=== PATIENT | male | born 1965 | race Caucasian/White ===

== ENCOUNTER 2020-08-20 08:37 | Outpatient (CLI) | payer MEDICARE, SELFPAY | END 2020-08-20 08:38 | disposition home or self-care (01) | LOC: LAB 08:41 | PROVIDERS: Family Provider Family Medicine; PCP Family Medicine; Visit Provider Family Medicine | DX: R19.7 Diarrhea, unspecified (principal) | CPT/HCPCS: 83630; 87046; 87177; 87209; 87493 ==

== ENCOUNTER 2022-05-02 10:36 | Emergency (ER) | payer MEDICARE, SELFPAY ==
[2022-05-02 10:43] VITALS: BP 117/73; PULSE 84; RESP 14; TEMP 36.2; O2SAT 95; BMI 20.9
[2022-05-02 10:52] VITALS: BP 137/82; PULSE 90; RESP 18; O2SAT 96
--- NOTE | 2022-05-02 10:53 | CTR_ITS ---
PROCEDURE INFORMATION: Exam: CT Head Without Contrast Exam date and time: 05/02/2022 11:44 AM Age: 56 years old Clinical indication: Altered mental status/memory loss; Additional info: AMS TECHNIQUE: Imaging protocol: Computed tomography of the head without contrast. Radiation optimization: All CT scans at this facility use at least one of these dose optimization techniques: automated exposure control; mA and/or kV adjustment per patient size (includes targeted exams where dose is matched to clinical indication); or iterative reconstruction. COMPARISON: No relevant prior studies available. RADIATION DOSE METRICS: Total DLP (mGy-cm): 1175.68 FINDINGS: Brain: Normal. No hemorrhage. Unremarkable white matter. No mass effect. Cerebral ventricles: No ventriculomegaly. Paranasal sinuses: Visualized sinuses are unremarkable. No fluid levels. Mastoid air cells: Visualized mastoid air cells are well aerated. Bones/joints: Unremarkable. No acute fracture. Soft tissues: Unremarkable. CT/CT head wo con* [id number] IMPRESSION: No acute intracranial abnormality.
--- NOTE | 2022-05-02 10:53 | XRR_ITS ---
PROCEDURE INFORMATION: Exam: XR Chest Exam date and time: 05/02/2022 11:06 AM Age: 56 years old Clinical indication: Cough and dyspnea; Additional info: Dyspnea/cough TECHNIQUE: Imaging protocol: Radiologic exam of the chest. Views: 1 view. COMPARISON: No relevant prior studies available. FINDINGS: Lungs: The lungs are somewhat hyperinflated with increased interstitial markings, likely representing COPD. No evidence of focal consolidation to suggest pneumonia. Pleural spaces: Unremarkable. No pleural effusion. No pneumothorax. Heart/Mediastinum: Stable cardiomediastinal silhouette. Bones/joints: Unremarkable. XR/XR chest 1V portable [id number] IMPRESSION: No evidence of focal consolidation. COPD changes.
--- NOTE | 2022-05-02 10:57 | PC.NURSE ---
BG 46, ERP notified, verbal orders to feed patient.
[2022-05-02 11:00] LABS: Glucose Point of Care 46 mg/dL (70-110)
--- NOTE | 2022-05-02 11:04 | ECG_ITS ---
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 Measurements Intervals [place] Rate: 86 P: 78 WI: 165 QRS: 61 QRSD: 96 T: 70 QT: 378 QTc: 455 Interpretive Statements SINUS RHYTHM WITH OCCASIONAL VENTRICULAR PREMATURE COMPLEXES INDETERMINATE AXIS MODERATE ST DEPRESSION [0.05+ mV ST DEPRESSION] No previous ECG available for comparison Electronically Signed On 05-02-2022 18:11:48 CDT by Ananda Newton M.D. [id number]
[2022-05-02] MEDS: lactated ringers 1,000 ML 999 ML IV (11:14)
--- NOTE | 2022-05-02 11:14 | W.ED.WEAKNES ---
HPI - Weakness General: Chief complaint: Weakness Stated complaint: weakness, drooping mouth, confusion Time Seen by Provider: 05/02/22 10:42 Source: patient Mode of arrival: ambulatory History of Present Illness: 56-year-old male presents emergency room week some confusion not feeling well when he woke this morning.. When I went to see the patient he was awake and alert and oriented. His blood sugar initially was 46. He is following commands moving all extremities no localized deficits. Patient admits to drinking regularly and heavily he drinks at least a pint a night every night and he drank that much last night. No headache no history of stroke or coronary artery disease. MD Complaint: generalized weakness Onset (ago): hour(s) Location: generalized Migration: none Severity: moderate Relieving factors: none Exacerbating factors: none Associated symptoms: Reports nausea; Denies chest pain, chills, confusion, melena, decreased appetite, diaphoresis, dysuria, easy bruising, fever(s), headache(s), myalgias, rash, short of breath, syncope or vomiting Review of Systems Const: Denies: fever(s), chills or diaphoresis ENMT: Denies: throat pain, ear or mastoid pain, nasal discharge or nasal congestion Card: Denies: chest pain or syncope Resp: Denies: dyspnea, productive cough or non-productive cough GI: Reports: nausea; Denies: vomiting or melena : Denies: dysuria Skin/Breast: Denies: rash or pruritus Neuro: Denies: headache(s) or confusion Jann/Lymph: Denies: easy bruising PFSH ED PFSH: Medical History GERD (gastroesophageal reflux disease) Surgical History History of femoral hernia repair Social History (Updated 05/02/22 @ 11:16 by Rene Saenz DO) Smoking and tobacco status: current every day smoker Alcohol intake: current Alcohol intake frequency: 3 or more drinks per day Alcohol type: hard liquor Alcohol use comment: Drinks 1 pint of hard liquor per day minimum Desire information about alcohol rehabilitation?: No Counseling given: No (patient declined, his response indicated he has no desire to stop) Physical Exam Const: GENERAL APPEARANCE: cooperative and comfortable ORIENTATION/CONSCIOUSNESS: Yes awake, Yes oriented to person, Yes oriented to place and Yes oriented to time HENMT: COMMON NORMALS: normocephalic, atraumatic, hearing grossly normal bilaterally, external ears normal, EAC's normal, TM's normal bilaterally, Normal nasal mucous membranes and turbinates present, moist oral mucous membranes and oropharynx normal HEAD & SCALP: normocephalic and atraumatic NOSE: Normal nasal mucous membranes and turbinates present EXTERNAL EAR: Yes external ears normal EXTERNAL AUDITORY CANAL: EAC's normal TYMPANIC MEMBRANE: TM's normal bilaterally Eye: COMMON NORMALS: Equal, round and reactive pupils present, EOMs intact bilaterally, conjunctivae normal and no scleral icterus CONJUNCTIVA: Yes conjunctivae normal PUPIL: Yes Equal, round and reactive pupils present Neck/C-Spine: COMMON NORMALS: full ROM, no lymphadenopathy, supple and no JVD Lymph: LYMPHATIC: no lymphadenopathy noted and no lymphedema noted Resp: COMMON NORMALS: normal respiratory effort, No retractions, No use of accessory muscles and clear to auscultation bilaterally AUSCULTATION: clear to auscultation bilaterally Cardio: COMMON NORMALS: no JVD, regular rate, regular rhythm and No murmurs present (Cardio) RATE: regular rate RHYTHM: regular rhythm GI: COMMON NORMALS: Soft to palpation and No hepatosplenomegaly present AUSCULTATION: Yes normoactive bowel sounds PALPATION: Yes Soft to palpation, No Tenderness to palpation present (GI), No Guarding due to palpation present (GI) and Yes No hepatosplenomegaly present Extremity: COMMON NORMALS: normal to inspection, capillary refill normal, no clubbing, cyanosis or edema, no calf tenderness and no pedal edema Neuro: SENSORIUM/ORIENTATION: Yes oriented to person, Yes oriented to place and Yes oriented to time OTHER: No focal neurologic deficits. Cranial nerves II to XII intact NIH score 0 Skin: COMMON NORMALS: no rashes or lesions noted GENERAL SKIN EXAM: no rashes or lesions noted Course Vital Signs: Vital signs: Vital Signs Temperature 97.2 F L 05/02/22 10:43 Pulse Rate 75 05/02/22 12:29 Respiratory Rate 16 05/02/22 12:29 Blood Pressure 120/76 05/02/22 12:29 Pulse Oximetry 95 05/02/22 12:29 Oxygen Delivery Me thod 05/02/22 11:18 MDM - Weakness Medical Decision Making Patient improved after eating and getting IV fluids. CT of the head is unremarkable remainder labs unremarkable. I suspect a lot of this is tied to his heavy drinking. Discussed with him and his encouraged alcohol abstinence. Discharged home on pantoprazole. Recommend he does follow-up with his primary care to reinforce alcohol abstinence. If he has any worsening or change symptoms return to the emergency room. Medical Records I reviewed the patient's medical records. Lab Data I reviewed the patient's lab results. : 05/02/22 11:03 05/02/22 11:03 Radiology Impressions Chest X-Ray 05/02/22 10:53 IMPRESSION: No evidence of focal consolidation. COPD changes. Head CT 05/02/22 10:53 IMPRESSION: No acute intracranial abnormality. Laboratory Results WBC 9.4 10^3/uL (4.0-10.0) 05/02/22 11:03 RBC 4.67 10^6/uL (4.1-5.3) 05/02/22 11:03 Hgb 15.4 g/dL (11.7-16.6) 05/02/22 11:03 Hct 45.7 % (42.0-52.0) 05/02/22 11:03 MCV 97.9 fl (80-94) H 05/02/22 11:03 MCH 33.0 pg (28.0-34.0) 05/02/22 11:03 MCHC 33.7 g/dL (30.0-36.0) 05/02/22 11:03 RDW 14.2 % (12.1-15.1) 05/02/22 11:03 Plt Count 172 10^3/cmm (130-400) 05/02/22 11:03 MPV 11.1 fL (7.4-10.4) H 05/02/22 11:03 Neut % (Auto) 54.5 % 05/02/22 11:03 Lymph % (Auto) 36.6 % 05/02/22 11:03 [place] % (Auto) 6.1 % 05/02/22 11:03 Eos % (Auto) 0.9 % 05/02/22 11:03 Baso % (Auto) 1.6 % 05/02/22 11:03 Neut # (Auto) 5.10 10^3/uL (1.8-7.7) 05/02/22 11:03 Lymph # (Auto) 3.4 10^3/uL (0.8-4.8) 05/02/22 11:03 [place] # (Auto) 0.6 10^3/uL (0.2-0.9) 05/02/22 11:03 Eos # (Auto) 0.1 10^3/uL (0.0-0.8) 05/02/22 11:03 Baso # (Auto) 0.2 10^3/uL (0.0-0.1) H 05/02/22 11:03 Nucleated RBC % (auto) 0 % 05/02/22 11:03 Nucleated RBCs # 0.0 /100WBC 05/02/22 11:03 Sodium 137 mmol/L (136-145) 05/02/22 11:03 Potassium 3.8 mmol/L (3.5-5.1) 05/02/22 11:03 Chloride 98 mmol/L (98-107) 05/02/22 11:03 Carbon Dioxide 18 mmol/L (22-29) L 05/02/22 11:03 Anion Gap 24.8 (5-19) H 05/02/22 11:03 BUN 9 mg/dL (6-20) 05/02/22 11:03 Creatinine 0.8 mg/dL (0.7-1.2) 05/02/22 11:03 GFR Calculation 99.6 mL/min (90-130) 05/02/22 11:03 Glucose 42 mg/dL (65-115) L 05/02/22 11:03 POC Glucose 143 mg/dL (70-110) H 05/02/22 11:54 Calculated Osmolality 280 mOsm/kg (285-295) L 05/02/22 11:03 Calcium 9.3 mg/dL (8.5-10.5) 05/02/22 11:03 Total Bilirubin 0.8 mg/dL (0.15-1.2) 05/02/22 11:03 AST 61 U/L (0-40) H 05/02/22 11:03 ALT 30 U/L (0-41) 05/02/22 11:03 Alkaline Phosphatase 90 U/L (40-130) 05/02/22 11:03 Total Protein 7.7 g/dL (6.6-8.7) 05/02/22 11:03 Albumin 4.3 g/dL (3.5-5.2) 05/02/22 11:03 Globulin 3.4 g/dL (1.3-4.6) 05/02/22 11:03 Lipase 39 U/L (13-60) 05/02/22 11:03 Urine Color Yellow (Yellow) 05/02/22 12:19 Urine Appearance Clear (CLEAR) 05/02/22 12:19 Urine pH 5 (5-7) 05/02/22 12:19 Ur Specific [place] 1.025 (1.005-1.030) 05/02/22 12:19 Urine Protein Neg (Negative) 05/02/22 12:19 Urine Glucose (UA) Norm (Normal) 05/02/22 12:19 Urine Ketones 1+ (Negative) H 05/02/22 12:19 Urine Blood Neg (Negative) 05/02/22 12:19 Urine Nitrate Negative (Negative) 05/02/22 12:19 Urine Bilirubin Neg (Negative) 05/02/22 12:19 Urine Urobilinogen Neg mg/dL (Negative) 05/02/22 12:19 Ur Leukocyte Esterase Negative (Negative) 05/02/22 12:19 Discharge Plan Discharge Patient Disposition: Home Clinical Impression: Alcoholism, GERD (gastroesophageal reflux disease), Dehydration Prescriptions: New Protonix 40 mg tablet,delayed release (DR/EC) 40 mg PO DAILY 56 Days Qty: 30 0RF No Action sildenafil 100 mg tablet See Rx Instructions .ROUTE .COMPLEX Qty: 20 4RF Dose Instruction: TAKE 1 TABLET BY MOUTH EVERY DAY NEEDED FOR SEXUAL ACTIVITY. TAKE 30 MINUTES TO 4 HOURS BEFORE ACTIVITY. Rx Instructions: TAKE 1 TABLET BY MOUTH EVERY DAY NEEDED FOR SEXUAL ACTIVITY. TAKE 30 MINUTES TO 4 HOURS BEFORE ACTIVITY. Discharge Orders: Discharge ED (Routine); Ordered 05/02/22 Ordered By: Rene Saenz Referrals: Rafal Canas MD [Primary Care Provider] - Discharge Diet: Usual diet Discharge Activity: Increase activity as tolerated Patient Instructions: Alcohol Dependence (ED), Opioid Safety, Pain Management Activity Restrictions/Additional Instructions: Strongly encourage abstinence from alcohol. Follow-up with Dr. Canas in the next 2 weeks. Start pantoprazole 40 mg daily. Coding Level of Care Code ED Extension Service Agent for Chg Fwd Exam Comprehensive
[2022-05-02 11:16] LABS: Basophils # 0.2 10^3/uL (0.0-0.1); Basophils % 1.6 %; Eosinophils # 0.1 10^3/uL (0.0-0.8); Eosinophils % 0.9 %; Hematocrit 45.7 % (42.0-52.0); Hemoglobin 15.4 g/dL (11.7-16.6); Lymphocytes # 3.4 10^3/uL (0.8-4.8); Lymphocytes % 36.6 %; Mean Corpuscular HGB Conc 33.7 g/dL (30.0-36.0); Mean Corpuscular Volume 97.9 fl (80-94); Mean Platelet Volume 11.1 fL (7.4-10.4); Monocytes # 0.6 10^3/uL (0.2-0.9); Monocytes % 6.1 %; Neutrophils % 54.5 %; Nucleated Red Blood Cells % 0 %; Platelet Count 172 10^3/cmm (130-400); Red Blood Count 4.67 10^6/uL (4.1-5.3); Red Cell Distribution Width 14.2 % (12.1-15.1); White Blood Count 9.4 10^3/uL (4.0-10.0)
--- NOTE | 2022-05-02 11:16 | PC.NURSE ---
Patient given PO apple juice, peanut butter crackers, and sandwich.
[2022-05-02 11:18] VITALS: BP 122/79; PULSE 96; RESP 18; O2SAT 94
[2022-05-02 11:26] LABS: Glucose Point of Care 68 mg/dL (70-110)
[2022-05-02 11:44] LABS: Albumin Level 4.3 g/dL (3.5-5.2); Alkaline Phosphatase 90 U/L (40-130); Blood Urea Nitrogen 9 mg/dL (6-20); Calcium 9.3 mg/dL (8.5-10.5); Carbon Dioxide 18 mmol/L (22-29); Chloride 98 mmol/L (98-107); Globulin 3.4 g/dL (1.3-4.6); Glomerular Filtration Rate 99.6 mL/min (90-130); Glucose 42 mg/dL (65-115); Osmolality Calculated 280 mOsm/kg (285-295); Sodium 137 mmol/L (136-145); Total Bilirubin 0.8 mg/dL (0.15-1.2); Total Protein 7.7 g/dL (6.6-8.7)
[2022-05-02 11:47] LABS: Anion Gap 24.8 (5-19); Potassium 3.8 mmol/L (3.5-5.1)
[2022-05-02 11:48] LABS: Alanine Aminotransferase 30 U/L (0-41); Aspartate Amino Transferase 61 U/L (0-40)
[2022-05-02 11:54] LABS: Lipase 39 U/L (13-60)
[2022-05-02 11:58] LABS: Glucose Point of Care 143 mg/dL (70-110)
[2022-05-02 12:23] LABS: Add Urine Microscopic? NO; Charge for UA Resulting for Rev
[2022-05-02 12:29] VITALS: BP 120/76; PULSE 75; RESP 16; O2SAT 95
[2022-05-02 12:31] LABS: Bilirubin Urine Neg (Negative); Blood Urine Neg (Negative); Glucose Urine UA Norm (Normal); Ketones Urine 1+ (Negative); Leukocyte Esterase Urine Negative (Negative); Nitrate Urine Negative (Negative); Protein Urine Neg (Negative); Specific Gravity, Urine 1.025 (1.005-1.030); Urine Appearance Clear (CLEAR); Urine Color Yellow (Yellow); Urobilinogen Urine Neg (Negative); pH Urine 5 (5-7)
== END 2022-05-02 12:31 | disposition home or self-care (01) ==
PROVIDERS: Emergency Provider Family Medicine; PCP Family Medicine
DX: F10.20 Alcohol dependence, uncomplicated (principal); K21.9 Gastro-esophageal reflux disease without esophagitis; E86.0 Dehydration; F17.200 Nicotine dependence, unspecified, uncomplicated
CPT/HCPCS: 36416; 70450; 71045; 80053; 81003; 82962; 83690; 85025; 93005; 96360; 99285

== ENCOUNTER 2022-10-18 12:07 | Inpatient (IN) | payer MEDICARE, SELFPAY ==
[2022-10-18] VITALS (9 sets, daily range): BP systolic 120–143; BP diastolic 71–84; PULSE 53–89; RESP 16–18; TEMP 36.4–36.9; O2SAT 90–97
[2022-10-18 12:27] LABS: Glucose Point of Care 167 mg/dL (70-110)
--- NOTE | 2022-10-18 12:31 | XRR_ITS ---
PROCEDURE INFORMATION: Exam: XR Chest Exam date and time: 10/18/2022 12:53 PM Age: 57 years old Clinical indication: Shortness of breath; Additional info: Jerking left hand TECHNIQUE: Imaging protocol: Radiologic exam of the chest. Views: 1 view. COMPARISON: CR XR chest 1V portable [id number] 05/02/2022 11:06 AM FINDINGS: Lungs: There is an ill-defined right apical opacity projecting over the medial head of the right clavicle more apparent on the current study inconclusive for apical pulmonary mass. Remaining lung odonnell aerated and clear. Pleural spaces: Unremarkable. No pleural effusion. No pneumothorax. Heart/Mediastinum: Unremarkable. No cardiomegaly. Bones/joints: Unremarkable for age. XR/XR chest 1V portable [id number] IMPRESSION: Ill-defined right apical opacity, nonspecific for which follow-up nonemergent CT chest recommended for further assessment.
--- NOTE | 2022-10-18 12:33 | CTR_ITS ---
PROCEDURE INFORMATION: Exam: CT Head Without Contrast Exam date and time: 10/18/2022 11:42 AM Age: 57 years old Clinical indication: Other: Jerking of left hand TECHNIQUE: Imaging protocol: Computed tomography of the head without contrast. Radiation optimization: All CT scans at this facility use at least one of these dose optimization techniques: automated exposure control; mA and/or kV adjustment per patient size (includes targeted exams where dose is matched to clinical indication); or iterative reconstruction. REPORTING DATA: Count of CT and Cardiac NM exams in prior 12 months: This patient has received [address] and 0 known cardiac nuclear medicine studies in the 12 months prior to the current study. COMPARISON: CT head wo con* [id number] 05/02/2022 11:44 AM RADIATION DOSE METRICS: Total DLP (mGy-cm): 1089.1 FINDINGS: Brain: There is a moderate-sized circumscribed wedge-shaped hypodensity involving the right temporal-parietal lobe and 2 smaller hypodensities within the right posterior frontal lobe that have developed with accompanying sulcal effacement consistent with acute infarcts involving right MCA territory. There is no evidence of underlying hemorrhage. There is no midline shift. There is a stable small hypodensity adjacent to the right frontal horn lateral ventricle and more ill-defined areas of decreased attenuation within the periventricular white matter secondary to chronic white matter microvascular changes. Cerebral ventricles: Unremarkable for age. Paranasal sinuses: Visualized sinuses are unremarkable. No fluid levels. Mastoid air cells: Visualized mastoid air cells are well aerated. Bones/joints: Unremarkable. No acute fracture. Soft tissues: Unremarkable. 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 No evidence of underlying hemorrhagic transformation. ASSESSMENT: ASPECTS ([place] Stroke Program Early CT Score) is 4.
[2022-10-18 13:41] LABS: Basophils % 0.6 %; Eosinophils % 0.4 %; Hematocrit 50.5 % (42.0-52.0); Hemoglobin 17.4 g/dL (11.7-16.6); Lymphocytes # 1.7 10^3/uL (0.8-4.8); Lymphocytes % 23.9 %; Mean Corpuscular HGB Conc 34.5 g/dL (30.0-36.0); Mean Corpuscular Hemoglobin 32.5 pg (28.0-34.0); Mean Corpuscular Volume 94.2 fl (80-94); Mean Platelet Volume 10.3 fL (7.4-10.4); Monocytes # 0.8 10^3/uL (0.2-0.9); Neutrophils # 4.41 10^3/uL (1.8-7.7); Nucleated Red Blood Cells % 0 %; Platelet Count 190 10^3/cmm (130-400); Red Blood Count 5.36 10^6/uL (4.1-5.3); White Blood Count 6.9 10^3/uL (4.0-10.0)
[2022-10-18 13:51] LABS: Alanine Aminotransferase 18 U/L (0-41); Alkaline Phosphatase 90 U/L (40-130); Anion Gap 14.6 (5-19); Aspartate Amino Transferase 26 U/L (0-40); Blood Urea Nitrogen 8 mg/dL (6-20); Calcium 9.4 mg/dL (8.5-10.5); Carbon Dioxide 27 mmol/L (22-29); Chloride 97 mmol/L (98-107); Globulin 3.1 g/dL (1.3-4.6); Glomerular Filtration Rate 99.3 mL/min (90-130); Glucose 134 mg/dL (65-115); Osmolality Calculated 280 mOsm/kg (285-295); Potassium 3.6 mmol/L (3.5-5.1); Sodium 135 mmol/L (136-145); Total Protein 7.1 g/dL (6.6-8.7)
[2022-10-18 13:58] LABS: Amphetamines Screen Urine Negative (Negative); Barbiturates Screen Urine Negative (Negative); Benzodiazepines Screen Urine Negative (Negative); Cocaine Screen Urine Negative (Negative); Opiate Screen Urine Negative (Negative); PCP Screen Urine Negative (Negative); THC Screen Urine Positive (Negative)
[2022-10-18 14:00] LABS: Add Urine Microscopic? YES; Bilirubin Urine 2+ (Negative); Blood Urine Neg (Negative); Glucose Urine UA Norm (Normal); Ketones Urine 3+ (Negative); Leukocyte Esterase Urine Negative (Negative); Nitrate Urine Negative (Negative); Protein Urine Trace (Negative); Specific Gravity, Urine 1.025 (1.005-1.030); Urine Appearance Clear (CLEAR); Urine Color Dark Yellow (Yellow); Urobilinogen Urine 4 mg/dL (Negative); WBC Urine RARE /hpf (0-5); pH Urine 5 (5-7)
[2022-10-18 14:01] LABS: Add Urine Culture? No; Bacteria Urine TRACE /hpf; Calcium Oxalate Crystals Urine 15-25 /hpf; Mucus Urine 2+ /hpf
--- NOTE | 2022-10-18 14:04 | ED_ITS ---
HPI - Neuro Symptoms/Deficit General: Chief Complaint: Neuro Symptoms/Deficit Stated Complaint: left side numb/speech slurred Time Seen by Provider: 10/18/22 12:24 History of Present Illness: This 57-year-old male with a history of GERD presents to the ER with intermittent involuntary jerking of the left upper extremity. notes that symptoms started on (3 days ago) but patient has refused to come to the hospital for evaluation. Patient has a history of alcohol abuse but notes that in recent times he has cut down drastically and has not had any drink over the last couple of days. adds that at the onset of his symptoms, patient was not making sense when he talked but with time this gradually improved to the point that patient is back to his baseline now. Patient stumbles when he walks and sustained a couple of bruises on the upper extremities as a result. No head injury or loss of consciousness was reported. There is no fever, vomiting, diarrhea or any other systemic symptoms. Associated symptoms: Deny chest pain or headache(s) Review of Systems Const: Denies: chills, body aches or change in appetite Eyes: Denies: change in vision or eye discharge ENMT: Denies: throat pain, dental pain or nasal discharge Card: Denies: chest pain or lightheadedness : Denies: dysuria Musc: Reports: other (Involuntary jerking movement of the left upper extremity.); Denies: neck pain or back pain Neuro: Denies: headache(s) or weakness in extremities Psych: Denies: depression Jann/Lymph: Denies: easy bruising All/Imm: Denies: urticaria, tongue swelling or facial swelling PFSH ED PFSH: Medical History GERD (gastroesophageal reflux disease) History of alcoholism Smoker Surgical History History of femoral hernia repair Family History (Updated 10/18/22 @ 15:09 by Joe Collins MD) Mother CAD (coronary artery disease) Father CAD (coronary artery disease) Social History Smoking and tobacco status: current every day smoker Alcohol intake: current Alcohol intake frequency: 3 or more drinks per day Alcohol type: hard liquor Desire information about alcohol rehabilitation?: No Counseling given: No (patient declined, his response indicated he has no desire to stop) Physical Exam Const: COMMON NORMALS: no acute distress, patient oriented x3, no limitations and alert HENMT: COMMON NORMALS: normocephalic HEAD & SCALP: normocephalic Eye: COMMON NORMALS: EOMs intact bilaterally Neck/C-Spine: COMMON NORMALS: full ROM and supple Chest: COMMONS NORMALS: normal inspection of the chest Resp: COMMON NORMALS: normal respiratory effort, No retractions, No use of accessory muscles and clear to auscultation bilaterally AUSCULTATION: clear to auscultation bilaterally Cardio: COMMON NORMALS: regular rate, regular rhythm and No murmurs present (Cardio) RATE: regular rate RHYTHM: regular rhythm GI: COMMON NORMALS: Normal to inspection, nondistended, normoactive bowel soun ds present and non-tender : COMMON NORMALS: Yes no CVA tenderness BLADDER/KIDNEY EXAM: Yes no CVA tenderness Back/Pelvis: COMMON NORMALS: no CVA tenderness and no thoracic nor lumbar tenderness Extremity: GENERAL: Yes normal exam except as noted Neuro: COMMON NORMALS: patient oriented x3 SENSORIUM/ORIENTATION: Yes alert SPEECH: speech normal OTHER: Patient has normal speech with no clear facial droop. Strength is 4+ out of 5 in the left upper extremity with normal strength in the rest of the extremities. Sensations are intact. Psych: COMMON NORMALS: mental status grossly normal and cooperative Course Consultations: Consultation #1: CT findings of right MCA distribution stroke were discussed with Dr. Sarmiento. She recommends getting an MRI/a of the head and neck tomorrow. Patient can be admitted under the hospitalist. He will see patient tomorrow. Time: 14:01 Vital Signs: Vital signs: Vital Signs Temperature 98.4 F 10/18/22 20:00 Pulse Rate 60 10/18/22 22:19 Respiratory Rate 17 10/18/22 20:00 Blood Pressure 120/78 10/18/22 20:00 Pulse Oximetry 90 10/18/22 20:00 Oxygen Delivery Me thod 10/18/22 20:00 MDM - Neuro Symptoms/Deficit Medical Decision Making Medical decision making: History as above. CT brain confirms that patient has an acute infarct in the right MCA distribution. Case discussed with Dr. Sarmiento and Dr. Stone who accepted patient for admission. Lab Data 10/18/22 12:51 03/12/23 12:51 Radiology Impressions Chest X-Ray 10/18/22 12:31 IMPRESSION: Ill-defined right apical opacity, nonspecific for which follow-up nonemergent CT chest recommended for further assessment. Head CT 10/18/22 12:33 IMPRESSION: Findings consistent with acute infarcts corresponding to right MCA territory involving right posterior frontal lobe and right temporal-parietal lobes. No evidence of underlying hemorrhagic transformation. ASSESSMENT: ASPECTS (Elizabeth Stroke Program Early CT Score) is 4. ADDENDUM: 10/18/22 1346 THIS REPORT CONTAINS FINDINGS THAT MAY BE CRITICAL TO PATIENT CARE. The findings were verbally communicated via telephone conference with BASHIR PANCHAL at 1:44 PM CDT on 10/18/2022. The findings were acknowledged and understood. Carotid Doppler Study 10/18/22 14:56 IMPRESSION: No carotid arterial stenosis. REFERENCES: SRU CRITERIA. The degree of internal carotid artery stenosis is based on criteria defined by the Society of Radiologists in Ultrasound (SRU). Normal is no stenosis. Mild is less than 50% stenosis. Moderate is 50-69% stenosis. Severe is greater than 69% stenosis to near occlusion. Near occlusion is a markedly narrowed lumen. Total occlusion is no detectable patent lumen. Chest CT 10/18/22 15:01 IMPRESSION: COPD with scattered chronic granulomatous calcifications. Negative for lung mass. Laboratory Results WBC 6.9 10^3/uL (4.0-10.0) 10/18/22 12:51 RBC 5.36 10^6/uL (4.1-5.3) H 10/18/22 12:51 Hgb 17.4 g/dL (11.7-16.6) H 10/18/22 12:51 Hct 50.5 % (42.0-52.0) 10/18/22 12:51 MCV 94.2 fl (80-94) H 10/18/22 12:51 MCH 32.5 pg (28.0-34.0) 10/18/22 12:51 MCHC 34.5 g/dL (30.0-36.0) 10/18/22 12:51 RDW 13.0 % (12.1-15.1) 10/18/22 12:51 Plt Count 190 10^3/cmm (130-400) 10/18/22 12:51 MPV 10.3 fL (7.4-10.4) 10/18/22 12:51 Neut % (Auto) 64.0 % 10/18/22 12:51 Lymph % (Auto) 23.9 % 10/18/22 12:51 [place] % (Auto) 11.0 % 10/18/22 12:51 Eos % (Auto) 0.4 % 10/18/22 12:51 Baso % (Auto) 0.6 % 10/18/22 12:51 Neut # (Auto) 4.41 10^3/uL (1.8-7.7) 10/18/22 12:51 Lymph # (Auto) 1.7 10^3/uL (0.8-4.8) 10/18/22 12:51 [place] # (Auto) 0.8 10^3/uL (0.2-0.9) 10/18/22 12:51 Eos # (Auto) 0.0 10^3/uL (0.0-0.8) 10/18/22 12:51 Baso # (Auto) 0.0 10^3/uL (0.0-0.1) 10/18/22 12:51 Nucleated RBC % (auto) 0 % 10/18/22 12:51 Nucleated RBCs # 0.0 /100WBC 10/18/22 12:51 ESR 7 mm/hr (0-10) 10/18/22 12:51 PT 12.70 SECONDS (12.1-14.9) 10/18/22 12:51 INR 0.93 (0.8-1.2) 10/18/22 12:51 Sodium 135 mmol/L (136-145) L 10/18/22 12:51 Potassium 3.6 mmol/L (3.5-5.1) 10/18/22 12:51 Chloride 97 mmol/L (98-107) L 10/18/22 12:51 Carbon Dioxide 27 mmol/L (22-29) 10/18/22 12:51 Anion Gap 14.6 (5-19) 10/18/22 12:51 BUN 8 mg/dL (6-20) 10/18/22 12:51 Creatinine 0.8 mg/dL (0.7-1.2) 10/18/22 12:51 GFR Calculation 99.3 mL/min (90-130) 10/18/22 12:51 Glucose 134 mg/dL (65-115) H 10/18/22 12:51 POC Glucose 167 mg/dL (70-110) H 10/18/22 12:25 Estimat Average Glucose 88 10/18/22 12:51 Hemoglobin A1c 4.7 % (4.0-6.0) 10/18/22 12:51 Calculated Osmolality 280 mOsm/kg (285-295) L 10/18/22 12:51 Calcium 9.4 mg/dL (8.5-10.5) 10/18/22 12:51 Total Bilirubin 1.0 mg/dL (0.15-1.2) 10/18/22 12:51 AST 26 U/L (0-40) 10/18/22 12:51 ALT 18 U/L (0-41) 10/18/22 12:51 Alkaline Phosphatase 90 U/L (40-130) 10/18/22 12:51 Troponin T Baseline 10 ng/L (0-15) 10/18/22 12:51 C-Reactive Protein 3.0 mg/L (0.0-4.9) 10/18/22 12:51 NT-Pro-B Natriuret Pep 182 pg/mL (0-125) H 10/18/22 12:51 Total Protein 7.1 g/dL (6.6-8.7) 10/18/22 12:51 Albumin 4.0 g/dL (3.5-5.2) 10/18/22 12:51 Globulin 3.1 g/dL (1.3-4.6) 10/18/22 12:51 Triglycerides 119 mg/dL (0-150) 10/18/22 12:51 Cholesterol 194 mg/dL (0-200) 10/18/22 12:51 LDL Cholesterol, Calc 100 mg/dL (50-129) 10/18/22 12:51 HDL Cholesterol 70 mg/dL (60-100) 10/18/22 12:51 LDL/HDL Ratio 1.43 RATIO (0.00-3.22) 10/18/22 12: Cholesterol/HDL Ratio 2.77 mg/dL (1.0-5.00) 10/18/22 12:51 Lipase 46 U/L (13-60) 10/18/22 12:51 Folate 14.9 ng/mL (4.5-32.2) 10/18/22 12:51 Procalcitonin 0.07 ng/mL (0-0.5) 10/18/22 12:51 TSH 0.80 uIU/mL (0.27-4.20) 10/18/22 12:51 Urine Color Dark yellow (Yellow) 10/18/22 13:20 Urine Appearance Clear (CLEAR) 10/18/22 13:20 Urine pH 5 (5-7) 10/18/22 13:20 Ur Specific [place] 1.025 (1.005-1.030) 10/18/22 13:20 Urine Protein Trace (Negative) 10/18/22 13:20 Urine Glucose (UA) Norm (Normal) 10/18/22 13:20 Urine Ketones 3+ (Negative) H 10/18/22 13:20 Urine Blood Neg (Negative) 10/18/22 13:20 Urine Nitrate Negative (Negative) 10/18/22 13:20 Urine Bilirubin 2+ (Negative) H 10/18/22 13:20 Urine Urobilinogen 4 mg/dL (Negative) H 10/18/22 13:20 Ur Leukocyte Esterase Negative (Negative) 10/18/22 13:20 Urine RBC None /hpf (0-2) 10/18/22 13:20 Urine WBC Rare /hpf (0-5) 10/18/22 13:20 Ur Squamous Epith Cells None /hpf (0-5) 10/18/22 13:20 Calcium Oxalate Crystal 15-25 /hpf H 10/18/22 13:20 Amorphous Sediment Not Reportable 10/18/22 13:20 Urine Bacteria Trace /hpf (NONE) 10/18/22 13:20 Urine Mucus 2+ /hpf 10/18/22 13:20 Urine Opiates Screen Negative ng/mL (Negative) 10/18/22 13:20 Ur Barbiturates Screen Negative ng/mL (Negative) 10/18/22 13:20 Ur Phencyclidine Scrn Negative ng/mL (Negative) 10/18/22 13:20 Ur Amphetamines Screen Negative ng/mL (Negative) 10/18/22 13:20 U Benzodiazepines Scrn Negative ng/mL (Negative) 10/18/22 13:20 Urine Cocaine Screen Negative ng/mL (Negative) 10/18/22 13:20 U Marijuana (THC) Screen Positive ng/mL (Negative) H 10/18/22 13:20 Discharge Plan Discharge Patient Disposition: Admitted As Inpatient Admit Provider: Joe Collins Clinical Impression: CVA (cerebrovascular accident) Condition: Stable Coding Level of Care Code ED Credit Card Interviewer for Richard Davis
--- NOTE | 2022-10-18 14:56 | USR_ITS ---
PROCEDURE INFORMATION: Exam: US Duplex Bilateral Extracranial Arteries, Carotid Arteries Exam date and time: 10/18/2022 6:30 PM Age: 57 years old Clinical indication: Speech disturbance; Slurred speech; Additional info: CVA TECHNIQUE: Imaging protocol: Real-time Duplex ultrasound scan of the bilateral carotid and vertebral arteries combining farah scale, color Doppler and spectral waveform analysis. Bilateral exam. Exam focused on the carotid arteries. COMPARISON: CT head wo con* [id number] 10/18/2022 11:42 AM FINDINGS: Right common carotid artery: Unremarkable. No occlusion or stenosis. Waveforms are normal. Right internal carotid artery: Unremarkable. No occlusion or stenosis. Waveforms are normal. Right ICA/CCA ratio: Within normal limits. Right external carotid artery: No stenosis in the origin. Right vertebral artery: Unremarkable. Antegrade flow. Left common carotid artery: Unremarkable. No occlusion or stenosis. Waveforms are normal. Left internal carotid artery: Unremarkable. No occlusion or stenosis. Waveforms are normal. Left ICA/CCA ratio: Within normal limits. Left external carotid artery: No stenosis in the origin. Left vertebral artery: Unremarkable. Antegrade flow. US/CV carotid duplex BI* [id number] IMPRESSION: No carotid arterial stenosis. REFERENCES: SRU CRITERIA. The degree of internal carotid artery stenosis is based on criteria defined by the Society of Radiologists in Ultrasound (SRU). Normal is no stenosis. Mild is less than 50% stenosis. Moderate is 50-69% stenosis. Severe is greater than 69% stenosis to near occlusion. Near occlusion is a markedly narrowed lumen. Total occlusion is no detectable patent lumen.
--- NOTE | 2022-10-18 14:56 | ECG_ITS ---
[facility] Test Date: 2022-10-18 Pat Name: Jarrell Lynne Department: Room: 251 Gender: Male Director Of Income Tax: : 1965 Requested By: Joe Collins Order Number: [id number] Dayami MD: Ananda Newton M.D. Measurements Intervals [place] Rate: 68 P: 24 RI: 161 QRS: 80 QRSD: 97 T: 269 QT: 409 QTc: 437 Interpretive Statements SINUS RHYTHM WITH OCCASIONAL VENTRICULAR PREMATURE COMPLEXES POSSIBLE LEFT ATRIAL ENLARGEMENT [-0.1mV P-WAVE IN V1/V2] INCOMPLETE RIGHT BUNDLE BRANCH BLOCK [90+ ms QRS DURATION, TERMINAL R IN V1/V2, 40+ ms S IN I/aVL/V4/V5/V6] SEPTAL MYOCARDIAL INFARCTION , OF INDETERMINATE AGE [40+ ms Q WAVE IN V1/V2] LATERAL MYOCARDIAL INFARCTION , OF INDETERMINATE AGE [40+ ms Q WAVE AND/OR ST/T ABNORMALITY IN I/aVL/V5/V6] MODERATE T-WAVE ABNORMALITY, CONSIDER INFERIOR ISCHEMIA [-0.1+ mV T-WAVE IN II/aVF].WARNING: DATA QUALITY MAY AFFECT INTERPRETATION Compared to ECG 05/02/2022 11:04:05.Incomplete right bundle-branch block now present.Myocardial infarct finding now present T-wave abnormality now present.Possible ischemia now present Indeterminate axis no longer present.ST (T wave) deviation no longer present Electronically Signed On 10-18-2022 19:41:44 CDT by Ananda Newton M.D. [id number]
--- NOTE | 2022-10-18 14:56 | USCV_ITS ---
Jarrell Lynne Age: 57 Gender: M : 1965 Exam Date: 10/18/2022 17:22 Ordering Phys: Joe Collins MD Technologist: ALLEGRA [place] [facility] [place] Indication: cva BP: / HR: 53 Rhythm: Sinus Technical Quality: Adequate MEASUREMENTS (Male / Female) Normal Values 2D ECHO LV Diastolic Diameter PLAX 4.3 cm 4.2 - 5.9 / 3.9 - 5.3 cm LV Systolic Diameter PLAX 3.8 cm IVS Diastolic Thickness 0.6 cm 0.6 - 1.0 / 0.6 - 0.9 cm IVS Systolic Thickness 1.1 cm LVPW Diastolic Thickness 1.1 cm 0.6 - 1.0 / 0.6 - 0.9 cm LVPW Systolic Thickness 1.1 cm LVOT Diameter 2.4 cm LV Ejection Fraction 2D Teich 22.9 % LV Ejection Fraction MOD 2C 53.7 % LV Ejection Fraction 2C AL 53.8 % LA Diameter 2.8 cm IVC Diameter 2.2 cm M-MODE Aortic Annulus Diameter 3.6 cm LA Ao Ratio MM 0.9 MV E Point Septal Separation 1.4 cm DOPPLER AV Peak Velocity 113.0 cm/s LVOT Peak Velocity 65.0 cm/s AV Area Cont Eq vti 3.0 cm squared AV Area Cont Eq pk 2.6 cm squared MV Area PHT 9.6 cm squared Mitral E to A Ratio 1.3 MV E' Velocity 33.0 cm/s Mitral E to MV E' Ratio 6.4 Mitral E to LV E' Lateral Ratio 6.5 Mitral E to LV E' Septal Ratio 6.3 TV Peak E Velocity 50.0 cm/s FINDINGS Left Ventricle Diffuse hypokinesia left ventricular ejection fraction of around 50-55%. Patient was found to have frequent ventricular arrhythmias in the study. Segmental wall motion analysis could be difficult because of the arrhythmia Right Ventricle Possibly normal RV size and ejection fraction Right Atrium Possibly of normal size Left Atrium The left atrium is normal in size. Mitral Valve Trace mitral valve regurgitation. Aortic Valve No gross abnormalities noted Tricuspid Valve No gross abnormalities noted Pulmonic Valve Pulmonic valve not well visualized. Pericardium Normal pericardium without effusion. Aorta Normal ascending aorta dimension. IVC Normal inferior vena cava. CONCLUSIONS Mild diffuse hypokinesia left ventricular ejection fraction of around 50-55%. Patient was found to have frequent ventricular arrhythmias in the study. Segmental wall motion analysis could be difficult because of the arrhythmia. Trace mitral valve regurgitation. There is no pericardial effusion. There are no intracardiac masses. Technically somewhat difficult study Dr Ananda Newton MD [facility] (Electronically Signed) Final Date: 18 October 2022 18:29 S
--- NOTE | 2022-10-18 15:00 | P.HP_ITS ---
Providers/Chief Complaint Primary Care Provider: Rafal Canas MD Chief Complaint: left side numb/speech slurred History of Present Illness Jarrell Lynne is a 57 year old male with a past medical history of COPD, active smoking, marijuana use, legally blind from macular degeneration, history of alcoholism. Who presents to [facility] due to left-sided weakness, trouble walking, trouble coordinating on the left side, some slurring of his words, since . Patient's symptoms started on , he started to develop left-sided weakness of his left arm and left leg, trouble walking, trouble coordinating, some slurring of his words, productive aphasia, not making sense, possibly some receptive aphasia he is legally blind. He thought his symptoms were related to hypoglycemia, however with increased intake his blood sugars did not improve. Patient tells me that he has a history of alcoholism, has been cutting down his alcohol consumption, 2-3 beers a day his last alcohol drink was last night, he had a shot also with alcohol. Because of his alcohol consumption his appetite has dramatically declined, he does not eat well, his weight is on the lower end but has always been a small jose he tells me. But a few months ago he had an episode like this, in which she felt weak on the left side, and when he ate something, he felt his blood sugars were low so after he ate something, he symptomatology on the left side improved. So this time and to happen again he thought by eating something his blood sugars are improving his symptoms would resolve however they persisted, and he refused to come to the hospital. He continues to have trouble coordinating on the left side but he tells me that some of the strength on the left side is improved, still has trouble coordinating and walking, but his ambulation has improved. His slurring of his words persist to some degree, but significantly improved, no trouble swallowing no choking, no coughing. No receptive aphasia, can follow commands. On my evaluation, his NIH stroke scale is 9, patient is out of tPA window, he is out of endovascular window, CT shows acute infarct involving MCA territory, on the right his strength on his left side is improving as per patient and family. Hospital team was called for admission. Currently on monitor no evidence of A- fib Review of Systems Const: Denies: fever(s), chills or fatigue ENMT: Denies: nasal congestion Card: Denies: chest pain or palpitations Resp: Denies: dyspnea, productive cough, non-productive cough or wheezing GI: Denies: abdominal pain, nausea, vomiting, constipation, hematochezia or melena : Denies: flank pain, difficulty urinating, dysuria or urinary frequency Musc: Denies: neck pain or back pain Skin/Breast: Denies: rash Neuro: Denies: headache(s), dizziness or vertigo Endo: Denies: polyuria or polydipsia Medications/Allergies Home Medications Medication Instructions Recorded Confirmed Last Taken Type pantoprazole 40 mg tablet,delayed 40 mg PO DAILY 30 days #30 tabs 07/07/22 10/18/22 2 Weeks Ago Rx release (Protonix) ~10/04/22 sildenafil 100 mg tablet See Rx Instructions .Route 07/20/22 10/18/22 10/16/22 Rx .COMPLEX #20 tabs phenylephrine-guaifenesin 5 mg-200 2 tab PO Q4H PRN Sinus Symptoms 10/18/22 10/18/22 Unknown History mg tablet Allergies Allergy/AdvReac Type Severity Reaction Status Date / Time No Known Allergies Allergy Verified 10/18/22 12:33 PFSH Acute PFSH: Medical History GERD (gastroesophageal reflux disease) History of alcoholism Smoker Surgical History History of femoral hernia repair Family History (Updated 10/18/22 @ 15:09 by Joe Collins MD) Mother CAD (coronary artery disease) Father CAD (coronary artery disease) Social History Smoking and tobacco status: current every day smoker Alcohol intake: current Alcohol intake frequency: 3 or more drinks per day Alcohol type: hard liquor Desire information about alcohol rehabilitation?: No Counseling given: No (patient declined, his response indicated he has no desire to stop) Vitals/I&O/Wt Last Vital Signs Pulse 57 L 10/18/22 14:00 Resp 16 10/18/22 13:16 BP 143/83 10/18/22 14:00 Pulse Ox 97 10/18/22 14:00 O2 Del Method 10/18/22 12:12 Weight last 48 hrs Weight 58.967 kg Physical Exam Const: COMMON NORMALS: no acute distress and patient oriented x3 HENMT: COMMON NORMALS: normocephalic HEAD & SCALP: normocephalic Eye: COMMON NORMALS: Equal, round and reactive pupils present Neck/C-Spine: COMMON NORMALS: no JVD Lymph: LYMPHATIC: no lymphadenopathy noted Chest: COMMONS NORMALS: normal inspection of the chest Resp: COMMON NORMALS: normal respiratory effort, No retractions, No use of accessory muscles and clear to auscultation bilaterally AUSCULTATION: clear to auscultation bilaterally Cardio: COMMON NORMALS: no JVD, regular rate, regular rhythm, S1 normal heart sound present and S2 normal heart sound present RATE: regular rate RHYTHM: regular rhythm HEART SOUNDS: S1 normal heart sound present and S2 normal hear t sound present GI: COMMON NORMALS: Normal to inspection, nondistended, normoactive bowel sounds present, Soft to palpation, non-tender, No hepatosplenomegaly present, no masses and no bruits PALPATION: Yes Soft to palpation and Yes No hepatosplenomegaly present Extremity: COMMON NORMALS: no calf tenderness and no pedal edema Neuro: COMMON NORMALS: patient oriented x3 OTHER: Slight left facial droop Slight slurring of the words No receptive aphasia Strength left upper extremity 3 out of 5, trouble coordinating Strength lower extremity, 4-5, trouble coordinating Psych: COMMON NORMALS: mental status grossly normal Data 10/18/22 12:51 10/18/22 12:51 A&P Assessment and plan (1) Acute right MCA stroke: (2) Smoker: (3) History of alcoholism: (4) Lung mass: (5) Protein calorie malnutrition: (6) Physical deconditioning: (7) Goals of care, counseling/discussion: Plan Acute right MCA stroke -NIH stroke scale 9, out of tPA window, no endovascular procedure window, its been 72 hours since his stroke episodes began, strength on the left side is improving Head CT -IMPRESSION: Findings consistent with acute infarcts corresponding to right MCA territory involving right posterior frontal lobe and right temporal-parietal lobes. No evidence of underlying hemorrhagic transformation. Plan -Admit to general medical floors -Neurochecks -Aspiration precautions -NIH stroke scale -PT OT, bedside swallow eval, speech therapy eval -IV fluids -Monitor blood pressures, can control blood pressures he is out of window for permissive hypertension -Cardiac echo -Telemetry monitoring -TSH, A1c, lipid panel -Aspirin, Plavix, statin -As per ER doctor, neurology wanted an MRI of the head and MRA of the head tomorrow, will order -Neurology has been consulted by ER physician -Thierno for DVT prophylaxis -Full code History of alcoholism -Last alcohol drink was yesterday, he had a couple beers and a shot of alcohol -No history of hemoptysis no history of esophageal varices, history of esophageal variceal bleed, nausea or bloody or black stools -We will do right right upper quadrant ultrasound -CIWA protocol - banana bag -Monitor for alcohol withdrawal Smoker, nicotine patch Chest x-ray picked up a right upper lung opacity to my examination, it seems like a lung mass, with his history of smoking, and his weight loss, will do a CT of the chest Weight loss, likely secondary alcoholism, CT of the chest for lung mass Protein calorie malnutrition from alcoholism, dietary consult Physical deconditioning, muscle wasting, has peripheral muscle wasting, temporal muscle wasting, likely from alcoholism Goals of care discussion patient wants to be a full code however he does not want to have life-sustaining measures if the likelihood of meaningful recovery is very unlikely, he would like his at bedside to make decisions for him if he cannot Attestations Medical Necessity Statement*: Patient requires hospitalization, inpatient, greater than 2 minutes, for acute right MCA stroke, alcoholism, lung mass Coding Level of Care Code Acute Code for Chg Fwd Diagnoses Acute right MCA stroke I63.511 Smoker F17.200 History of alcoholism F10.21 Lung mass R91.8 Protein calorie malnutrition E46 Physical deconditioning R53.81 Goals of care, counseling/discussion Z71.89
--- NOTE | 2022-10-18 15:01 | CTR_ITS ---
PROCEDURE INFORMATION: Exam: CT Chest Without Contrast; Diagnostic Exam date and time: 10/18/2022 2:06 PM Age: 57 years old Clinical indication: Shortness of breath; Additional info: Pulmonary mass TECHNIQUE: Imaging protocol: Diagnostic computed tomography of the chest without contrast. Radiation optimization: All CT scans at this facility use at least one of these dose optimization techniques: automated exposure control; mA and/or kV adjustment per patient size (includes targeted exams where dose is matched to clinical indication); or iterative reconstruction. REPORTING DATA: Count of CT and Cardiac NM exams in prior 12 months: This patient has received 2 known CTs and 0 known cardiac nuclear medicine studies in the 12 months prior to the current study. COMPARISON: CR (CHEST, ) 10/18/2022 12:53 PM RADIATION DOSE METRICS: Total DLP (mGy-cm): 245.95 FINDINGS: Lungs: Lung odonnell are hyperinflated and hyperlucent consistent with COPD. There are scattered multiple small calcifications both lung odonnell consistent with old granulomatous disease. There are no masses or infiltrates. There are some scattered granulomatous calcifications within the mediastinum. Pleural spaces: Unremarkable. No pneumothorax. No pleural effusion. Heart: Heart is not significantly enlarged. No significant coronary artery calcifications. No significant pericardial effusion. Lymph nodes: Unremarkable. No enlarged lymph nodes. Vasculature: Ascending aorta is ectatic measuring 3.7 cm. Bones/joints: Unremarkable. No acute fracture. Soft tissues: Unremarkable. CT/CT chest wo con [id number] IMPRESSION: COPD with scattered chronic granulomatous calcifications. Negative for lung mass.
[2022-10-18 15:37] LABS: INR 0.93 (0.8-1.2)
[2022-10-18 15:49] LABS: Troponin(5th) Baseline 10 ng/L (0-15)
[2022-10-18 15:55] LABS: NT Pro B Type Natriuretic Pept 182 pg/mL (0-125); Procalcitonin 0.07 ng/mL (0-0.5)
[2022-10-18 16:13] LABS: Erythrocyte Sedimentation Rate 7 mm/hr (0-10)
[2022-10-18] MEDS: folic acid 1 MG, multivitamin inj 10 ML, thiamine 100 MG in sodium chloride 0.9% 1,000 ML 252.8 MG IV (16:14)
[2022-10-18] MEDS: aspirin 81 mg EC Tablet PO (16:15)
[2022-10-18] MEDS: pantoprazole 40 mg SDV IVP (16:15)
[2022-10-18] MEDS: clopidogrel 75 mg Tablet PO (16:15)
[2022-10-18] MEDS: enoxaparin 40 mg/0.4 mL Syringe SUBCUT (16:16)
[2022-10-18] MEDS: sodium chloride 0.9% 1,000 ML 125 ML IV (16:16)
[2022-10-18 16:55] LABS: Estmated Average Glucose 88; Hemoglobin A1C 4.7 % (4.0-6.0)
[2022-10-18 16:57] LABS: Chol HDL Ratio 2.77 mg/dL (1.0-5.00); Cholesterol 194 mg/dL (0-200); HDL Cholesterol 70 mg/dL (60-100); LDL Cholesterol Calculated 100 mg/dL (50-129); LDL HDL Ratio 1.43 RATIO (0.00-3.22); Lipase 46 U/L (13-60); Triglycerides 119 mg/dL (0-150)
[2022-10-18 17:07] LABS: Folate Level 14.9 ng/mL (4.5-32.2)
[2022-10-18 17:49] LABS: Troponin 5 2HR 10.47 ng/L (0-15)
[2022-10-18 17:56] LABS: Troponin 5 2HR Delta 0.47 ABS# (0-10)
[2022-10-18] MEDS: LORazepam 2 mg/mL INJ 1 mL IVP (19:55)
[2022-10-18] MEDS: atorvastatin 40 mg Tablet PO (20:00)
[2022-10-19] VITALS (8 sets, daily range): BP systolic 101–132; BP diastolic 62–81; PULSE 49–72; RESP 16–18; TEMP 36.4–37.2; O2SAT 92–98
[2022-10-19 05:01] LABS: Basophils # 0.1 10^3/uL (0.0-0.1); Eosinophils # 0.1 10^3/uL (0.0-0.8); Eosinophils % 1.2 %; Hematocrit 42.7 % (42.0-52.0); Hemoglobin 14.8 g/dL (11.7-16.6); Lymphocytes # 2.2 10^3/uL (0.8-4.8); Lymphocytes % 36.1 %; Mean Corpuscular HGB Conc 34.7 g/dL (30.0-36.0); Mean Corpuscular Hemoglobin 32.3 pg (28.0-34.0); Mean Corpuscular Volume 93.2 fl (80-94); Monocytes # 0.8 10^3/uL (0.2-0.9); Monocytes % 13.9 %; Neutrophils # 2.84 10^3/uL (1.8-7.7); Neutrophils % 47.6 %; Nucleated Red Blood Cells % 0 %; Platelet Count 183 10^3/cmm (130-400); Red Blood Count 4.58 10^6/uL (4.1-5.3); Red Cell Distribution Width 12.7 % (12.1-15.1)
[2022-10-19] MEDS: sodium chloride 0.9% 1,000 ML 125 ML IV (05:12)
[2022-10-19 05:22] LABS: Anion Gap 15.7 (5-19); Blood Urea Nitrogen 8 mg/dL (6-20); Calcium 8.1 mg/dL (8.5-10.5); Carbon Dioxide 21 mmol/L (22-29); Chloride 105 mmol/L (98-107); Glomerular Filtration Rate 115.8 mL/min (90-130); Glucose 68 mg/dL (65-115); Magnesium 1.8 mg/dL (1.7-2.3); Osmolality Calculated 283 mOsm/kg (285-295); Phosphorus 2.7 mg/dL (2.5-4.5); Potassium 3.7 mmol/L (3.5-5.1); Sodium 138 mmol/L (136-145)
[2022-10-19] MEDS: folic acid 1 mg Tablet PO (08:13)
[2022-10-19] MEDS: thiamine 100 mg Tablet PO (08:13)
[2022-10-19] MEDS: multivitamin therapeutic Tablet 1 TAB PO (08:13)
--- NOTE | 2022-10-19 09:30 | MR_ITS ---
WS: [id number] MRA HEAD TECHNIQUE: Axial 3-D TOF images obtained with axial images and axial, sagittal, and coronal 2-D refor matted images. CLINICAL INFORMATION: cva FINDINGS: Distal vertebral arteries are patent. Basilar artery is patent. Normal vascularity to the SWAGE TENDER territo ry bilaterally. Both ICAs are patent at the skull base. Normal vascularity to the JARETH and MCA territo jennifer bilaterally. RIGHT M1 segment and proximal MCA is patent. Diffuse decreased vascularity in the posterior division of the RIGHT MCA also involving a few 2nd 3rd order sylvian branches. No proximal flow limiting steno sis. Consider RIGHT side embolic etiology. Consider further evaluation of the neck vessels with contr ast enhanced CTA of the neck. MR/MR angio head wo con [id number] IMPRESSION: 1. No evidence of proximal flow limiting stenosis. RIGHT supraclinoid ICA and M1 segment is patent. RIGHT MCA is patent to the trifurcation. 2. Decreased vascularity involving the sylvian branches and more prominent dec reased vascularity involving the 2nd and 3rd order posterior division branches posterior frontal and parietal lobes. Consider embolic etiology or possibly dis section. 3. Consider further evaluation with CTA neck. 4. Normal vascularity to the JARETH and LEFT MCA territory. 5. Normal basilar artery and posterior cerebral arteries bilaterally. Notified Dr. Marie Chung at 10/19/2022 1:31 PM.
--- NOTE | 2022-10-19 10:00 | MR_ITS ---
WS: [id number] MRI HEAD WITHOUT CONTRAST TECHNIQUE: Sagittal T1, T2 axial, T2 axial FLAIR, axial and coronal T1 images, axial susceptibility w eighted imaging, axial diffusion weighted images, and coronal T2 images were obtained. CLINICAL INFORMATION: cva COMPARISON: CT October 18, 2022 FINDINGS: Large areas of restricted diffusion involving the RIGHT MCA territory compatible with acute ischemia. This involves the RIGHT frontal operculum, RIGHT posterior frontal and parietal lobes and superior t emporal lobes consistent with acute ischemia. This is similar in appearance to the prior CT. No evide nce of acute hemorrhage. Mild associated mass effect on the underlying parenchyma and RIGHT lateral v entricle. No significant midline shift. No hydrocephalus. [id number] small vessel changes. Mild parenchymal volume loss. Brain stem signal appears normal . Normal vascular flow voids at the skull base. Mild mucosal thickening in the paranasal sinuses. Nor mal posterior nasopharynx. No hemosiderin on susceptibly weighted images. Normal optic chiasm and pituitary infundibulum. No other acute findings. MR/MR head wo con* [id number] IMPRESSION: 1. Large areas of acute ischemia RIGHT MCA territory involving the RIGHT front al operculum, RIGHT posterior frontal lobe and parietal lobes, and RIGHT tempor al lobe 2. Additional patchy areas of acute ischemia involving the RIGHT frontal lobe and parietal lobes near the vertex. 3. Moderate associated edema with mild mass effect. Mild mass effect on the RI GHT lateral ventricle. No significant midline shift or hydrocephalus. 4. No evidence of acute hemorrhage. 5. Mild to moderate small vessel changes with mild parenchymal volume loss. 6. Findings are similar to the recent CT.
--- NOTE | 2022-10-19 10:29 | PC.CHAP ---
Pastoral Care Encounter/Spiritual Assessment Type of Contact [] Declined cake wrapper visit [] Patient/Family/Request visit [] Outpatient visit [] Follow-up visit [] Physician referral [] Code/Alert [x] Routine visit [] Staff referral [] Actively dying [] Patient sleeping [x] Family support [] [] Out of room [] Palliative care [] [] Receiving care in room [] Pre-surgical visit [] Trauma [] Long length of stay [] ICU visit [] Other: Relational/Emotional Strength [x] Patient feels connected with others/family/visitors/staff [] Distress [] Loneliness/isolation [] Abandonment Spirituality of Patient [x] Person of Shaniqua [] Attends Tenriism of their Shaniqua [x] Believes in Prayer [] Reads Bible or Yarsani materials [] There are Spiritual issues to be addressed Supervisor [facility] Interventions x Prayer [x] Active listening [x] Non-anxious presence [x] Spiritual/emotional support [] Crisis/trauma care [] Spiritual counseling [] Bereavement support [] Provided bereavement packet [] Provided Bible/devotional materials [] Provided toy/stuffed animal, coloring book to patient or family member [] Provided Communion [] Anointing/[place] [] Salvation [x] Completed spiritual assessment [] Other: Impact on Illness or Injury [] Angry [] Fearful [] Anxious [] Often cries [] Exhaustion [] Unable to work [] Unable to attend congregational [] Unable to walk/stand [] Unable to read [] Unable to drive [] Unable to eat/drink [] Unable to sleep [] Unable to be with family [] Patient intubated [] Other: Summary Time spent with patient 10 min
--- NOTE | 2022-10-19 12:17 | PM.PN ---
Subjective Subjective: Patient is legally blind. Ativan. Suspicion of alcohol withdrawal. Last drink was 48 hours ago Did not offer any complaints or concerns at this time. Awaiting MRI today. Vitals/I&O/Wt Last Vital Signs Temp 97.5 F L 10/19/22 07:57 Pulse 60 10/19/22 07:57 Resp 16 10/19/22 07:57 BP 128/75 10/19/22 07:57 Pulse Ox 92 10/19/22 07:57 O2 Del Method 10/19/22 03:22 10/18/22 10/19/22 10/19/22 22:59 06:59 14:59 Intake Total 1479.95 / 1479.95 531. / 806.25 / 806.25 Balance 1479.95 / 1479.95 531. 806.25 / 806.25 Weight last 48 hrs Weight 58.967 kg Physical Exam Narrative: General: Alert oriented x3, patient seen sitting up in bed. Legally blind. HEENT: Normocephalic, atraumatic, EOMI, breathing comfortably. Cardio: Regular rate rhythm, normal S1-S2 Respiratory: Good bilateral air entry, no wheezes no rhonchi appreciated GI: Abdomen soft, nontender, nondistended, bowel sounds + Behavior: Appropriate and cooperative Extremities: No edema No aphasia no slurring of words. Slightly weak on left upper extremity. Data 10/19/22 04:15 10/19/22 04:15 A&P Assessment and plan (1) Acute right MCA stroke: (2) Smoker: (3) History of alcoholism: (4) Lung mass: (5) Protein calorie malnutrition: (6) Physical deconditioning: (7) Goals of care, counseling/discussion: Plan Acute right MCA stroke -NIH stroke scale 9, out of tPA window, no endovascular procedure window, its been 72 hours since his stroke episodes began, strength on the left side is improving Head CT -IMPRESSION: Findings consistent with acute infarcts corresponding to right MCA territory involving right posterior frontal lobe and right temporal-parietal lobes. No evidence of underlying hemorrhagic transformation. Plan -Admit to general medical floors -Neurochecks -Aspiration precautions -NIH stroke scale -PT OT, bedside swallow eval, speech therapy eval -IV fluids -Monitor blood pressures, can control blood pressures he is out of window for permissive hypertension -Cardiac echo -Telemetry monitoring -TSH, A1c, lipid panel -Aspirin, Plavix, statin -As per ER doctor, neurology wanted an MRI of the head and MRA of the head tomorrow, will order -Neurology has been consulted by ER physician -Thierno for DVT prophylaxis -Awaiting mri today -Full code History of alcoholism -Last alcohol drink was yesterday, he had a couple beers and a shot of alcohol -No history of hemoptysis no history of esophageal varices, history of esophageal variceal bleed, nausea or bloody or black stools -We will do right right upper quadrant ultrasound -CIWA protocol - banana bag -Monitor for alcohol withdrawal Smoker, nicotine patch Chest x-ray picked up a right upper lung opacity to my examination, it seems like a lung mass, with his history of smoking, and his weight loss, will do a CT of the chest Weight loss, likely secondary alcoholism, CT of the chest for lung mass Protein calorie malnutrition from alcoholism, dietary consult Physical deconditioning, muscle wasting, has peripheral muscle wasting, temporal muscle wasting, likely from alcoholism Goals of care discussion patient wants to be a full code however he does not want to have life-sustaining measures if the likelihood of meaningful recovery is very unlikely, he would like his at bedside to make decisions for him if he cannot Attestations Medical Necessity Statement*: awaiting mri today Diagnoses Acute right MCA stroke I63.511 Smoker F17.200 History of alcoholism F10.21 Lung mass R91.8 Protein calorie malnutrition E46 Physical deconditioning R53.81 Goals of care, counseling/discussion Z71.89
--- NOTE | 2022-10-19 13:46 | CT_ITS ---
WS: [id number] CT ANGIOGRAM CAROTID ARTERIES HISTORY: r/o dissection TECHNIQUE: CT angiogram is performed of the carotid arteries. During arterial injection imaging is ob tained from the skull base to the aortic arch in 1.25 mm imaging. Coronal and sagittal reformats are submitted, MIP imaging also reviewed. Additional multiplanar reformats of the carotid arteries are lopez bmitted. NASCET criteria utilized. All CT scans at [facility] use at least one of these dose optimization techniques: automated exposure control; mA and/or kV adjustment per patient size (includ es targeted exams where dose is matched to clinical indication); or iterative reconstruction. CONTRAST: Omnipaque 350; 100 mL IV. DLP: 412.44 mGy.cm COMPARISON: MRI 10/19/2022, carotid ultrasound 10/18/2022 Right carotid: Common carotid artery: Arises normally from the innominate artery. No significant plaque or stenosis. Internal carotid artery: No plaque or stenosis. External carotid artery: Patent. Left carotid: Common carotid artery: Arises normally from the aortic arch. No significant stenosis. Internal carotid artery: No plaque or stenosis. External carotid artery: Patent. Right vertebral artery: Unremarkable. Left vertebral artery: Unremarkable. Arises normally from the left subclavian artery. Subclavian arteries: No stenosis or abnormality identified. Upper thorax: Paraseptal emphysema. Thyroid gland: Normal. Osseous structures: Unremarkable. Skull base: Negative. Mild asymmetry LEFT tongue base and palatine tonsil. Appears larger than on the RIGHT with small bila teral cervical chain lymph nodes. CT/CT angio neck [id number] IMPRESSION: 1. No carotid artery dissection or thrombus or occlusion. 2. No significant vertebral artery stenosis or thrombus. 3. No cervical carotid artery stenosis. 4. Increased soft tissue and asymmetry involving the LEFT tongue base and [place] tonsil. No significant enhancement on this examination. Consider direct vi sualization.
[2022-10-19] MEDS: iohexol 350 mg/mL 500 mL Btl (per mL) IV (15:00)
[2022-10-19] MEDS: clopidogrel 75 mg Tablet PO (15:28)
[2022-10-19] MEDS: pantoprazole 40 mg SDV IVP (15:28)
[2022-10-19] MEDS: aspirin 81 mg EC Tablet PO (15:28)
--- NOTE | 2022-10-19 17:20 | USCV_ITS ---
Jarrell Lynne Age: 57 Gender: M : 1965 Exam Date: 10/19/2022 19:41 Ordering Phys: Marie Chung MD Technologist: ABIEL [place] [facility] [place]ication: involuntary jerking of LUE, ataxia. A complete echo was performed earlier today. BP: 132 / 81 HR: Rhythm: Sinus Technical Quality: Adequate MEASUREMENTS (Male / Female) Normal Values FINDINGS Left Ventricle Right Ventricle Right Atrium Left Atrium Mitral Valve Aortic Valve Tricuspid Valve Pulmonic Valve Pericardium Aorta IVC CONCLUSIONS Please note that this is a limited study to assess intracardiac shunt Left ventricular ejection fraction appeared to be low normal 50 %, there is no obvious wall motion abnormality on current images No significant intracardiac shunt noted with agitated saline contrast. No pericardial effusion Manuel Jurado MD (Electronically Signed) Final Date: 19 October 2022 20:18 S
--- NOTE | 2022-10-19 17:20 | USCV_ITS ---
GokulJarrell suarez Age: 57 Gender: M : 1965 Exam Date: 10/19/2022 18:57 Ordering Phys: Marie Chung MD Technologist: ABIEL [place] [facility] [place]ication: R/O DVT involuntary jerking of LUE, ataxia. No history of DVT per patient. HISTORY: R/O DVT involuntary jerking of LUE, ataxia. No history of DVT per patient. PROCEDURES: Venous duplex imaging was performed in bilateral lower extremities. The following venous structures were evaluated: common femoral vein, profunda vein, proximal portion of the greater saphenous vein, superficial femoral vein, and the popliteal vein. In addition, the posterior tibial and peroneal veins were evaluated. FINDINGS: Normal 2-D Doppler and augmentation and compressibility throughout the lower extremity venous structures. Additional imaging through the proximal calf veins also reveals no thrombus. Limited evaluation of the greater saphenous vein is patent with no thrombus. CONCLUSIONS No DVT bilateral lower extremities. Dr. Cynthia Davalos DO (Electronically Signed) Final Date: 20 October 2022 07:28 S
--- NOTE | 2022-10-19 19:23 | PC.NURSE ---
Patient and family going to have a thin crust pizza delivered to patient with [place] crain and pineapple, educated patient and family regarding potential risks of choking and following recommended dietary guidelines, notified Dr. Jalloh of patients non compliant diet.
[2022-10-19] MEDS: atorvastatin 40 mg Tablet PO (20:51)
[2022-10-19] MEDS: LORazepam 2 mg Tablet PO (20:51)
[2022-10-20 04:00] VITALS: BP 105/74; PULSE 54; RESP 18; TEMP 37; O2SAT 95
[2022-10-20 08:00] VITALS: BP 129/78; PULSE 51; RESP 15; TEMP 36.4
[2022-10-20 08:55] VITALS: BP 129/78; PULSE 51; RESP 15; TEMP 36.4; O2SAT 91
[2022-10-20] MEDS: multivitamin therapeutic Tablet 1 TAB PO (09:18)
[2022-10-20] MEDS: thiamine 100 mg Tablet PO (09:18)
[2022-10-20] MEDS: folic acid 1 mg Tablet PO (09:18)
[2022-10-20] MEDS: diphenhydrAMINE 25 mg Capsule PO (09:40)
--- NOTE | 2022-10-20 11:26 | PM.DCS ---
Discharge Providers Date of Admission: 10/18/22 15:40 Date of Discharge: October 20, 2022 Attending Provider at Admission: Joe Collins MD Attending Provider at Discharge: Marie Chung MD Primary Care Provider: Rafal Canas MD Diagnoses at Discharge Discharge Diagnosis (1) Acute right MCA stroke: Status: Acute (2) Smoker: Status: Acute (3) History of alcoholism: Status: Acute (4) Lung mass: Status: Resolved (5) Protein calorie malnutrition: Status: Acute (6) Physical deconditioning: Status: Acute (7) Goals of care, counseling/discussion: Status: Acute Reason for Visit Reason for Visit: left side numb/speech slurred Brief History: As per Dr. Collins Jarrell Lynne is a 57 year old male with a past medical history of COPD, active smoking, marijuana use, legally blind from macular degeneration, history of alcoholism.? Who presents to [facility] due to left-sided weakness, trouble walking, trouble coordinating on the left side, some slurring of his words, since .? Patient's symptoms started on , he started to develop left-sided weakness of his left arm and left leg, trouble walking, trouble coordinating, some slurring of his words, productive aphasia, not making sense, possibly some receptive aphasia he is legally blind.? He thought his symptoms were related to hypoglycemia, however with increased intake his blood sugars did not improve.? Patient tells me that he has a history of alcoholism, has been cutting down his alcohol consumption, 2-3 beers a day his last alcohol drink was last night, he had a shot also with alcohol.? Because of his alcohol consumption his appetite has dramatically declined, he does not eat well, his weight is on the lower end but has always been a small jose he tells me.? But a few months ago he had an episode like this, in which she felt weak on the left side, and when he ate something, he felt his blood sugars were low so after he ate something, he symptomatology on the left side improved.? So this time and to happen again he thought by eating something his blood sugars are improving his symptoms would resolve however they persisted, and he refused to come to the hospital.? He continues to have trouble coordinating on the left side but he tells me that some of the strength on the left side is improved, still has trouble coordinating and walking, but his ambulation has improved.? His slurring of his words persist to some degree, but significantly improved, no trouble swallowing no choking, no coughing.? No receptive aphasia, can follow commands.? On my evaluation, his NIH stroke scale is 9, patient is out of tPA window, he is out of endovascular? window, CT shows acute infarct involving MCA territory, on the right his strength on his left side is improving as per patient and family.? Hospital team was called for admission.? Currently on monitor no evidence of A-fib Hospital Course Hospital Course Admitted for left sided neuro deficits that started 5-6 days prior to admission. Out of window for tpa. MRi completed which showed MCA stroke. Pt seen by neurology as well. Edema noted on MRI and CT. CT angio neck also done ruled out dissection . 21 day event monitor done at discharge with aspirin, plavix, statin added. Pt to see neuro as outpatient within 2 weeks of discharge. Radiology recommended serial CT's however discussed with neurology and since stroke is 5-6 days old, patient may be discharged home from neuro standpoint. at bedside. Pt insists on discharge and stated if it didnt happen he would leave AMA. Echo complete, bubble study did not show intracardiac shunt. Patient to discharge home in stable condition. PT recommended home exercise program. Echo showed normal EF, no wall motion abnormalities but mild diffuse hypokinesia. Patient to have outpatient stress test with follow up with cardiology at discharge. Discussed this with patient and and they are ok with it. He denies any cardiac issues at this time. Physical Exam Narrative: General: Alert oriented x3, patient seen sitting up in bed. Legally blind. HEENT: Normocephalic, atraumatic, EOMI, breathing comfortably. Cardio: Regular rate rhythm, normal S1-S2 Respiratory: Good bilateral air entry, no wheezes no rhonchi appreciated GI: Abdomen soft, nontender, nondistended, bowel sounds + Behavior: Appropriate and cooperative Extremities: No edema No aphasia no slurring of words. Slightly weak on left upper extremity. Discharge Data Studies Completed and Pending Completed Studies During Hospitalization Category Date Time Status CT chest wo con [id number] Stat Cat Scan 10/18/22 15:[address] head wo con* [id number] Stat Cat Scan 10/18/22 12:33 Completed CTA neck [CT angio neck [id number]] Stat Cat Scan 10/19/22 13:46 Completed XR chest 1V portable [id number] Stat Exams 10/18/22 12:31 Completed MR angio head wo con [id number] Routine MRI 10/19/22 09:30 Completed MR head wo con* [id number] Routine MRI 10/19/22 10:00 Completed CV carotid duplex BI* [id number] Stat Ultrasound 10/18/22 14:56 [place] [id number] Routine Ultrasound 10/19/22 17:20 Completed CV. echo complete* [id number] Stat Ultrasound 10/18/22 14:56 Completed CV. echo lmt wo/w bubble [id number] Routine Ultrasound 10/19/22 17:20 Completed Pending at discharge Category Date Time Status Methyl Alcohol, Quant Routine Lab 10/18/22 16:46 Received Vitamin B1(Thiamin) Plas/Ser Urgent Lab 10/18/22 16:46 Received Radiology Impressions Chest X-Ray 10/18/22 12:31 IMPRESSION: Ill-defined right apical opacity, nonspecific for which follow-up nonemergent CT chest recommended for further assessment. Head CT 10/18/22 12:33 IMPRESSION: Findings consistent with acute infarcts corresponding to right MCA territory involving right posterior frontal lobe and right temporal-parietal lobes. No evidence of underlying hemorrhagic transformation. ASSESSMENT: ASPECTS (Elizabeth Stroke Program Early CT Score) is 4. ADDENDUM: 10/18/22 1346 THIS REPORT CONTAINS FINDINGS THAT MAY BE CRITICAL TO PATIENT CARE. The findings were verbally communicated via telephone conference with BASHIR PANCHAL at 1:44 PM CDT on 10/18/2022. The findings were acknowledged and understood. Carotid Doppler Study 10/18/22 14:56 IMPRESSION: No carotid arterial stenosis. REFERENCES: SRU CRITERIA. The degree of internal carotid artery stenosis is based on criteria defined by the Society of Radiologists in Ultrasound (SRU). Normal is no stenosis. Mild is less than 50% stenosis. Moderate is 50-69% stenosis. Severe is greater than 69% stenosis to near occlusion. Near occlusion is a markedly narrowed lumen. Total occlusion is no detectable patent lumen. Chest CT 10/18/22 15:01 IMPRESSION: COPD with scattered chronic granulomatous calcifications. Negative for lung mass. Head MRA 10/19/22 09:30 IMPRESSION: 1. No evidence of proximal flow limiting stenosis. RIGHT supraclinoid ICA and M1 segment is patent. RIGHT MCA is patent to the trifurcation. 2. Decreased vascularity involving the sylvian branches and more prominent decreased vascularity involving the 2nd and 3rd order posterior division branches posterior frontal and parietal lobes. Consider embolic etiology or possibly dissection. 3. Consider further evaluation with CTA neck. 4. Normal vascularity to the JARETH and LEFT MCA territory. 5. Normal basilar artery and posterior cerebral arteries bilaterally. Notified Dr. Marie Chung at 10/19/2022 1:31 PM. Head MRI 10/19/22 10:00 IMPRESSION: 1. Large areas of acute ischemia RIGHT MCA territory involving the RIGHT frontal operculum, RIGHT posterior frontal lobe and parietal lobes, and RIGHT temporal lobe 2. Additional patchy areas of acute ischemia involving the RIGHT frontal lobe and parietal lobes near the vertex. 3. Moderate associated edema with mild mass effect. Mild mass effect on the RIGHT lateral ventricle. No significant midline shift or hydrocephalus. 4. No evidence of acute hemorrhage. 5. Mild to moderate small vessel changes with mild parenchymal volume loss. 6. Findings are similar to the recent CT. Neck CTA 10/19/22 13:46 IMPRESSION: 1. No carotid artery dissection or thrombus or occlusion. 2. No significant vertebral artery stenosis or thrombus. 3. No cervical carotid artery stenosis. 4. Increased soft tissue and asymmetry involving the LEFT tongue base and palatine tonsil. No significant enhancement on this examination. Consider direct visualization. Laboratory Results WBC 6.0 10^3/uL (4.0-10.0) 10/19/22 04:15 RBC 4.58 10^6/uL (4.1-5.3) 10/19/22 04:15 Hgb 14.8 g/dL (11.7-16.6) 10/19/22 04:15 Hct 42.7 % (42.0-52.0) 10/19/22 04:15 MCV 93.2 fl (80-94) 10/19/22 04:15 MCH 32.3 pg (28.0-34.0) 10/19/22 04:15 MCHC 34.7 g/dL (30.0-36.0) 10/19/22 04:15 RDW 12.7 % (12.1-15.1) 10/19/22 04:15 Plt Count 183 10^3/cmm (130-400) 10/19/22 04:15 MPV 10.0 fL (7.4-10.4) 10/19/22 04:15 Neut % (Auto) 47.6 % 10/19/22 04:15 Lymph % (Auto) 36.1 % 10/19/22 04:15 Obion % (Auto) 13.9 % 10/19/22 04:15 Eos % (Auto) 1.2 % 10/19/22 04:15 Baso % (Auto) 1.0 % 10/19/22 04:15 Neut # (Auto) 2.84 10^3/uL (1.8-7.7) 10/19/22 04:15 Lymph # (Auto) 2.2 10^3/uL (0.8-4.8) 10/19/22 04:15 Obion # (Auto) 0.8 10^3/uL (0.2-0.9) 10/19/22 04:15 Eos # (Auto) 0.1 10^3/uL (0.0-0.8) 10/19/22 04:15 Baso # (Auto) 0.1 10^3/uL (0.0-0.1) 10/19/22 04:15 Nucleated RBC % (auto) 0 % 10/19/22 04:15 Nucleated RBCs # 0.0 /100WBC 10/19/22 04:15 ESR 7 mm/hr (0-10) 10/18/22 12:51 PT 12.70 SECONDS (12.1-14.9) 10/18/22 12:51 INR 0.93 (0.8-1.2) 10/18/22 12:51 Sodium 138 mmol/L (136-145) 10/19/22 04:15 Potassium 3.7 mmol/L (3.5-5.1) 10/19/22 04:15 Chloride 105 mmol/L (98-107) 10/19/22 04:15 Carbon Dioxide 21 mmol/L (22-29) L 10/19/22 04:15 Anion Gap 15.7 (5-19) 10/19/22 04:15 BUN 8 mg/dL (6-20) 10/19/22 04:15 Creatinine 0.7 mg/dL (0.7-1.2) 10/19/22 04:15 GFR Calculation 115.8 mL/min (90-130) 10/19/22 04:15 Glucose 68 mg/dL (65-115) 10/19/22 04:15 POC Glucose 167 mg/dL (70-110) H 10/18/22 12:25 Estimat Average Glucose 88 10/18/22 12:51 Hemoglobin A1c 4.7 % (4.0-6.0) 10/18/22 12:51 Calculated Osmolality 283 mOsm/kg (285-295) L 10/19/22 04:15 Calcium 8.1 mg/dL (8.5-10.5) L 10/19/22 04:15 Phosphorus 2.7 mg/dL (2.5-4.5) 10/19/22 04:15 Magnesium 1.8 mg/dL (1.7-2.3) 10/19/22 04:15 Total Bilirubin 1.0 mg/dL (0.15-1.2) 10/18/22 12:51 AST 26 U/L (0-40) 10/18/22 12:51 ALT 18 U/L (0-41) 10/18/22 12:51 Alkaline Phosphatase 90 U/L (40-130) 10/18/22 12:51 Troponin T Baseline 10 ng/L (0-15) 10/18/22 12:51 Troponin T 120 Minute 10.47 ng/L (0-15) 10/18/22 16:46 Delta Troponin T 0.47 ABS# (0-10) 10/18/22 16:46 Troponin T Hi Sens 6Hr 11.10 ng/L (0-15) 10/18/22 21:25 Troponin T Hi Sens 6Hr Delta 1.10 ng/L (0-12) 10/18/22 21:25 C-Reactive Protein 3.0 mg/L (0.0-4.9) 10/18/22 12:51 NT-Pro-B Natriuret Pep 182 pg/mL (0-125) H 10/18/22 12:51 Total Protein 7.1 g/dL (6.6-8.7) 10/18/22 12:51 Albumin 4.0 g/dL (3.5-5.2) 10/18/22 12:51 Globulin 3.1 g/dL (1.3-4.6) 10/18/22 12:51 Triglycerides 119 mg/dL (0-150) 10/18/22 12:51 Cholesterol 194 mg/dL (0-200) 10/18/22 12:51 LDL Cholesterol, Calc 100 mg/dL (50-129) 10/18/22 12: HDL Cholesterol 70 mg/dL (60-100) 10/18/22 12:51 LDL/HDL Ratio 1.43 RATIO (0.00-3.22) 10/18/22 12:51 Cholesterol/HDL Ratio 2.77 mg/dL (1.0-5.00) 10/18/22 12: Lipase 46 U/L (13-60) 10/18/22 12: Folate 14.9 ng/mL (4.5-32.2) 10/18/22 12: Procalcitonin 0.07 ng/mL (0-0.5) 10/18/22 12: TSH 0.80 uIU/mL (0.27-4.20) 10/18/22 12:51 Urine Color Dark yellow (Yellow) 10/18/22 13:20 Urine Appearance Clear (CLEAR) 10/18/22 13:20 Urine pH 5 (5-7) 10/18/22 13:20 Ur Specific Picher 1.025 (1.005-1.030) 10/18/22 13:20 Urine Protein Trace (Negative) 10/18/22 13:20 Urine Glucose (UA) Norm (Normal) 10/18/22 13:20 Urine Ketones 3+ (Negative) H 10/18/22 13:20 Urine Blood Neg (Negative) 10/18/22 13:20 Urine Nitrate Negative (Negative) 10/18/22 13:20 Urine Bilirubin 2+ (Negative) H 10/18/22 13:20 Urine Urobilinogen 4 mg/dL (Negative) H 10/18/22 13:20 Ur Leukocyte Esterase Negative (Negative) 10/18/22 13:20 Urine RBC None /hpf (0-2) 10/18/22 13:20 Urine WBC Rare /hpf (0-5) 10/18/22 13:20 Ur Squamous Epith Cells None /hpf (0-5) 10/18/22 13:20 Calcium Oxalate Crystal 15-25 /hpf H 10/18/22 13:20 Amorphous Sediment Not Reportable 10/18/22 13:20 Urine Bacteria Trace /hpf (NONE) 10/18/22 13:20 Urine Mucus 2+ /hpf 10/18/22 13:20 Urine Opiates Screen Negative ng/mL (Negative) 10/18/22 13:20 Ur Barbiturates Screen Negative ng/mL (Negative) 10/18/22 13:20 Ur Phencyclidine Scrn Negative ng/mL (Negative) 10/18/22 13:20 Ur Amphetamines Screen Negative ng/mL (Negative) 10/18/22 13:20 U Benzodiazepines Scrn Negative ng/mL (Negative) 10/18/22 13:20 Urine Cocaine Screen Negative ng/mL (Negative) 10/18/22 13:20 U Marijuana (THC) Screen Positive ng/mL (Negative) H 10/18/22 13:20 Vitals Last Vital Signs Temp 97.6 F 10/20/22 08:55 Pulse 51 L 10/20/22 08:55 Resp 15 10/20/22 08:55 BP 129/78 10/20/22 08:55 Pulse Ox 91 10/20/22 08:55 O2 Del Method 10/20/22 08:55 Discharge Plan Discharge Patient Disposition: Home Condition: Stable Prescriptions: New aspirin 81 mg Tablet,Delayed Release (Dr/Ec) 81 mg PO Q24H 30 Days Qty: 30 0RF atorvastatin 40 mg Tablet 40 mg PO BEDTIME 30 Days Qty: 30 0RF clopidogrel 75 mg Tablet 75 mg PO Q24H 30 Days Qty: 30 0RF Thera 400 mcg Tablet 1 tab PO DAILY 30 Days Qty: 30 0RF Continued Protonix 40 mg tablet,delayed release (DR/EC) 40 mg PO DAILY 30 Days Qty: 30 2RF Held sildenafil 100 mg tablet See Rx Instructions .ROUTE .COMPLEX Qty: 20 4RF Hold Instructions: see pcp Dose Instruction: TAKE 1 TABLET BY MOUTH EVERY DAY NEEDED FOR SEXUAL ACTIVITY. TAKE 30 MINUTES TO 4 HOURS BEFORE ACTIVITY. Rx Instructions: TAKE 1 TABLET BY MOUTH EVERY DAY NEEDED FOR SEXUAL ACTIVITY. TAKE 30 MINUTES TO 4 HOURS BEFORE ACTIVITY. phenylephrine-guaifenesin 5-200 mg Tablet 2 tab PO Q4H PRN (Reason: Sinus Symptoms) Hold Instructions: see pcp Discharge Orders: Discharge Order (Routine); Ordered 10/20/22 Ordered By: Marie Chung Other Ambulatory Orders: Sestamibi Stress Test Request (Routine) Timeframe: 1 Week Facility: [facility] - Location: Cardiac Diagnostic Laboratory Ordered By: Marie Chung MCT/Event Monitor 21 Days (Routine) Timeframe: 1 Day Facility: [facility] - Location: Radiology Ordered By: Marie Chung Referrals: Kaylyn Sarmiento MD [Physician] - 11/03/22 9:40 am Rafal Canas MD [Primary Care Provider] - 10/26/22 9:00 am Ananda Newton MD [Physician] - 11/25/22 1:45 pm ( ) Discharge Diet: Usual diet Discharge Activity: Increase activity as tolerated and As per PT/OT instructions Patient Instructions: Alcohol Withdrawal, Aspirin (By mouth), Atorvastatin (By mouth), Clopidogrel (By mouth), Stroke (DC), Opioid Safety, Stroke Stoplight Activity Restrictions/Additional Instructions: Home exercise program [facility] WILL CALL WITH APPOINTMENT FOR STRESS TEST,. APPOINTMENT FOR [facility] WILL BE NOVEMBER 02 AT 1:45 Discharge Attestations Time Spent in Discharge Care*: greater than 30 min Quality Metrics Clinical Quality Measures [ No reported AMI, CVA or VTE this stay] Coding Level of Care Code Acute Code for Chg Fwd Diagnoses Acute right MCA stroke I63.511 Smoker F17.200 History of alcoholism F10.21 Lung mass R91.8 Protein calorie malnutrition E46 Physical deconditioning R53.81 Goals of care, counseling/discussion Z71.89
[2022-10-20 12:00] VITALS: BP 129/78; PULSE 51; RESP 15; TEMP 36.4
[2022-10-20 13:00] VITALS: BP 129/78; PULSE 51; RESP 15; TEMP 36.4
[2022-10-21 23:55] LABS: Alcohol, Methyl NONE DETECTED (NONE DETECTED); Volatile Analysis Performed On WHOLE BLOOD
[2022-10-23 11:59] LABS: Vitamin B1(Thiamin) Plas/Ser <7 nmol/L (8-30)
== END 2022-10-20 12:47 | disposition home or self-care (01) | DRG 65 ==
LOC: ER 15:28 → MEDSURG 15:46
PROVIDERS: Admitting Provider Family Medicine; Emergency Provider Family Medicine; PCP Family Medicine; Visit Provider Internal Medicine
DX: I63.511 Cerebral infarction due to unspecified occlusion or stenosis of right middle cerebral artery (principal); E46 Unspecified protein-calorie malnutrition; F10.239 Alcohol dependence with withdrawal, unspecified; G81.94 Hemiplegia, unspecified affecting left nondominant side; R47.01 Aphasia; R29.709 NIHSS score 9; J44.9 Chronic obstructive pulmonary disease, unspecified; F17.200 Nicotine dependence, unspecified, uncomplicated; F12.90 Cannabis use, unspecified, uncomplicated; H54.8 Legal blindness, as defined in USA; R91.8 Other nonspecific abnormal finding of lung field; Z68.21 Body mass index [BMI] 21.0-21.9, adult; K21.9 Gastro-esophageal reflux disease without esophagitis
CPT/HCPCS: 36415; 36416; 70450; 70498; 70544; 70551; 71045; 71250; 80048; 80053; 80061; 80306; 80320; 81001; 82746; 82962; 83036; 83690; 83735; 83880; 84100; 84145; 84425; 84443; 84484; 85025; 85610; 85651; 86140; 92523; 92610; 93005; 93306; 93880; 93970; 94664; 96372; 97161; 97165; 99285; C8924; C9113; J1650; J2060; J3411; J3490; J7030; Q9967

== ENCOUNTER → 2022-11-03 09:34 | Outpatient (BNVA) | payer MEDICARE, SELFPAY | PROVIDERS: PCP Family Medicine; Visit Provider Specialist | DX: R21 Rash and other nonspecific skin eruption (principal); F17.210 Nicotine dependence, cigarettes, uncomplicated; F10.21 Alcohol dependence, in remission; Z86.73 Personal history of transient ischemic attack (TIA), and cerebral infarction without residual deficits | CPT/HCPCS: 99205 ==

== ENCOUNTER → 2022-11-25 14:17 | Outpatient (BNVA) | payer MEDICARE, SELFPAY | PROVIDERS: PCP Family Medicine; Visit Provider Internal Medicine Cardiovascular Disease | DX: I49.3 Ventricular premature depolarization (principal); Z86.73 Personal history of transient ischemic attack (TIA), and cerebral infarction without residual deficits; F17.200 Nicotine dependence, unspecified, uncomplicated; I51.9 Heart disease, unspecified | CPT/HCPCS: 93246; 99204 ==

== ENCOUNTER 2023-01-01 10:25 | Outpatient (CLI) | payer MEDICARE, SELFPAY ==
--- NOTE | 2023-01-01 | ECG_ITS ---
[facility] Test Date: 2023-01-01 Pat Name: Jarrell Lynne Department: Room: Gender: Male Ranger Aide: : 1965 Requested By: Marie Chung Order Number: [id number] Stock MD: Maxim Berger M.D. Interpretive Statements NAME OF STUDY: LEXISCAN SESTAMIBI STRESS TEST INDICATION: [hypokenesis, ] Procedure: At the baseline, the blood pressure was 112/74 mmHg with a heart rate of 46 bpm. The electrocardiogram showed normal sinus bradycardia, normal axis with normal ST and T's. The Lexiscan was infused over a period of 20 seconds. A total of 0.4 mg of Lexiscan was infused. The stress phase was continued for a total of 5 minutes. Heart rate was at the end of stress phase was 84 bpm and a blood pressure of 119/72 mmHg. The EKG at the peak infusion revealed normal sinus rhythm with no significant ST-T wave changes. Sestamibi was injected 20 seconds after the Lexiscan infusion. Blood pressure at the end of recovery phase was 122/75 mmHg with a heart rate of 74 bpm. Conclusion: 1. Normal EKG response to Lexiscan infusion 2. No Lexiscan induced chest pain or cardiac arrhythmia. 3. Normal blood pressure and heart rate response. 4. Sestamibi/sestamibi perfusion scan pending; see separate report. Electronically Signed On 01-21-2023 9:46:28 CDT by Maxim Berger M.D. [email or web address]
[2023-01-01 10:38] VITALS: BMI 18.6
--- NOTE | 2023-01-01 10:39 | NMCV_ITS ---
NM tr perf SPECT r/s* [id number] Jarrell Lynne Age: 57 Gender: M : 1965 Exam Date: 01/01/2023 11:29 Ordering Phys: Marie Chung MD Technologist: KT Chandler Exam Location: [facility] Indications: EXERCISE INTOLLERENCE, VENTRICULAR PREMATURE DEPOLARIZATION STRESS TEST Please [facility] IMAGE PROTOCOL Rest/Stress 1 Lexiscan Day Radiopharmaceutical Dose (mCi) Administration Site Administered by Rest: Tc-99m 10.7 IV Kel Green, MUSEUM PREPARATOR Sestamibi Stress:Tc-99m 32.7 IV Kel Green, MUSEUM PREPARATOR Sestamibi Rest: 01-Jan-2023 60 Discovery 630 Stress: 01-Jan-2023 30 Discovery 630 0.4mg Lexiscan. Images obtained in supine and prone position. SPECT RESULTS Technical Quality: Good Raw Data Analysis: Normal Image Corrections: No attenuation or motion correction applied Summed Stress Score: 3 Summed Rest Score: 3 Summed Difference Score: 2 PERFUSION FINDINGS Small sized perfusion abnormality of mild severity of apical inferior, apical septal and apical lateral guillermo on rest and stress images. FUNCTIONAL RESULTS (calculated via Gated SPECT) Stress Image LV EF (%): 64 Stress EDV (mL):120 TID: 1.07 Stress ESV (mL):43 FUNCTIONAL FINDINGS: The left ventricle is normal in size. Transient Ischemia Dilatation of 1.1. The left ventricular ejection fraction is normal with a value of 64%. There is normal left ventricular wall thickening. IMPRESSIONS 1. Small sized perfusion abnormality of mild severity of apical inferior, apical septal and apical lateral guillermo. This may represent old myocardial infarction in LAD artery territory or attenuation artifact. 2. Overall left ventricular systolic function is normal without regional wall motion abnormalities, LVEF=64%. 3. No coronary ischemia based on this study. Atiya Lee MD (Electronically Signed) Final Date: 02 Jan 2023 15:09 S
[2023-01-01] MEDS: regadenoson 0.4 Mg/5 ml Syringe IVP (11:58)
[2023-01-01 12:13] VITALS: BP 122/75; PULSE 82
== END 2023-01-01 10:26 | disposition home or self-care (01) ==
LOC: CDL 10:27
PROVIDERS: PCP Family Medicine; Visit Provider Internal Medicine
DX: I49.3 Ventricular premature depolarization (principal); R68.89 Other general symptoms and signs
CPT/HCPCS: 36415; 78452; 93017; 96374; A9500; J2785